=== PATIENT | female | born 2000 | race Two or more races ===

== ENCOUNTER 2024-02-09 06:14 | Inpatient (IN) | payer OTHER ==
[2024-02-09 06:37] VITALS: RESP 16
[2024-02-09] MEDS ORDERED: TRANEXAMIC 1,000 MG/100ML-NACL 1,000 MG in EMPTY BAG 1 BAG IV PRN (06:37)
[2024-02-09] MEDS ORDERED: TERBUTALINE 1 MG/ML VIAL SQ PRN (06:37)
[2024-02-09] MEDS ORDERED: OXYTOCIN 10 UNIT/ML 1 ML VIAL IM PRN (06:37)
[2024-02-09] MEDS ORDERED: miSOPROStoL 200 MCG TAB RECTAL PRN (06:37)
[2024-02-09] MEDS ORDERED: METHYLERGONOVINE 0.2 MG/ML 1 ML AMP IM PRN (06:37)
[2024-02-09] MEDS ORDERED: miSOPROStoL 200 MCG TAB PO PRN (06:37)
[2024-02-09] MEDS ORDERED: CARBOPROST TROMETHAMINE 250 MCG/ML 1 ML AMP IM PRN (06:37)
[2024-02-09] MEDS ORDERED: OXYTOCIN 30 UNITS/500 ML NS 30 UNIT in SALINE 1 500ML.BAG IV SCH (06:45)
[2024-02-09] MEDS: LACTATED RINGERS 1,000 ML IV SCH (06:46)
[2024-02-09] MEDS: NALBUPHINE 10 MG/ML (10 ML MDV) IV PRN (06:50)
[2024-02-09 06:54] LABS: Basophils % (A) 0 %; Eosinophils # (A) 0.1 k/uL (0-0.7); Eosinophils % (A) 1 %; HCT 35.8 % (34.0-46.0); HGB 12.2 gm/dL (11.4-16.0); Lymphocytes # (A) 1.7 k/uL (1.0-4.8); Lymphocytes % (A) 15 %; MCH 29.9 pg (25.0-35.0); MCHC 34.1 g/dL (31.0-37.0); MCV 87.8 fL (80.0-100.0); Mean Platelet Volume 9.5; Monocytes # (A) 0.5 k/uL (0-1.0); Monocytes % (A) 4 %; Neutrophils # (A) 9.2 k/uL (1.3-7.7); Neutrophils % (A) 79 %; Platelet Count 253 k/uL (150-450); RBC 4.08 m/uL (3.80-5.40); RDW 14.8 % (11.5-15.5); WBC 11.7 k/uL (3.8-10.6)
[2024-02-09] MEDS ORDERED: fentaNYL (PF) 50 MCG/ML 5 ML AMP ONE (07:34)
[2024-02-09] MEDS ORDERED: SODIUM CHLORIDE 0.9% 250 ML BAG ONE (07:34)
[2024-02-09] MEDS ORDERED: ROPIVACAINE 5 MG/ML 30 ML VIAL ONE (07:34)
--- NOTE | 2024-02-09 10:03 | P.HPOB ---
History of Present Illness H&P Date: 02/09/24 Chief Complaint: leaking of fluid, contractions Ms. Madden is a 23 year old at 39 weeks and 0 days with EDC of 02/16/2024 who receives care with Dr. Man at [facility] and presented with spontaneous rupture of membranes this morning at 149 with clear fluid and painful contractions. She was dilated to 5/80/-2 in triage per the OB RN. The patient states her has been uncomplicated, she has a normal 1 hour GTT, and her GBS was negative. Records will be requested from her office. Obstetric history: 1 FTVD IOL at 40 weeks for pre-eclampsia, male, 7#4oz. 2 SABs. Medical history: patient denies Medications: ferrous sulfate, PNVs, ASA SxHx: wisdom teeth extraction SocHx: Negative x3 Past Medical History Additional Past Medical History / Comment(s): Preeclampsia with first History of Any Multi-Drug Resistant Organisms: None Reported Past Surgical History: No Surgical Hx Reported Past Anesthesia/Blood Transfusion Reactions: No Reported Reaction Past Psychological History: No Psychological Hx Reported Smoking Status: Never smoker Past Drug Use History: None Reported Medications and Allergies Home Medications Medication Instructions Recorded Confirmed Type Aspirin 81 mg PO DAILY 02/09/24 02/09/24 History Ferrous Sulfate [Iron] 325 mg PO DAILY 02/09/24 02/09/24 History Vit No.179/Iron/Folic 1 tab PO DAILY 02/09/24 02/09/24 History [ Tablet] Allergies Allergy/AdvReac Type Severity Reaction Status Date / Time bee venom protein (honey bee) Allergy Unknown Verified 02/09/24 06:18 Exam Vital Signs Temp Pulse Resp BP Pulse Ox 02/09/24 06:37 96.7 F L 84 16 125/85 99 02/09/24 06:17 96.7 F L 84 16 125/85 99 Intake and Output 02/08/24 02/09/24 02/09/24 22:59 06:59 14:59 Other: Weight 87.997 kg Focused physical exam is performed. This is a healthy-appearing in no apparent distress. Breathing is non-labored. Abdomen is gravid and non-tender. Cervical exam is 5/80/-2 per OB RN. Gross rupture of membranes noted. Extremities non-tender and non-edematous. heart tones are Category I and tocometer is graphing contractions every 2-4 minutes. Results Result Diagrams: 02/09/24 06:40 Abnormal Lab Results - Last 24 Hours (Table) 02/09/24 Range/Units 06:40 WBC 11.7 H (3.8-10.6) k/uL Neutrophils # 9.2 H (1.3-7.7) k/uL Assessment and Plan Assessment: 23 year old at 39 weeks and 0 days with grossly ruptured membranes and in labor Plan: Admit, clear liquid diet, epidural prn, continuous EFM and tocometer, expectant management, anticipate vaginal delivery
--- NOTE | 2024-02-09 11:45 | P.MSEPDOC ---
Presenting Problems - Arrival Data Date of Arrival on Unit: 02/09/24 Time of Arrival on Unit: 06:40 Mode of Transport: Wheelchair - Complaint OB-Reason for Admission/Chief Complaint: Rule Out SROM Comment: [email or web address]@[id number] Medical History - Information : 2 Para: 1 Term: 1 : 0 Abortions: Spontaneous or Elective: 0 Number of Living Children: 1 - Gestational Age Gestational Age by LEANDRO (wks/days): 39 Weeks and 0 Days - History Comment: Pt has had care in [place] with Dr [email or web address] Review of Systems - Review of Systems Constitutional: No problems Breast: No problems ENT: No problems Cardiovascular: No problems Respiratory: No problems Gastrointestinal: No problems Genitourinary: No problems Musculoskeletal: No problems Neurological: No problems Skin: No problems Vital Signs - Temperature Temperature: 96.7 F Temperature Source: Axillary - Pulse Right Sitting Pulse Rate: 84 Pulse Assessment Method: Automatic Cuff - Respirations Respiratory Rate: 16 Oxygen Delivery Method: Room Air O2 Sat by Pulse Oximetry: 99 - Blood Pressure Right Arm Sitting Blood Pressure: 125/85 Blood Pressure Mean: 98 Blood Pressure Source: Automatic Cuff Medical Screen Scoring - Cervical Exam Dilation (cm): 5 Effacement (%): 80 Station: -2 Membranes: Ruptured - Uterine Contractions Intensity: Strong - Assessment - Baby A Baseline FHR: 145 Heart Rate - NICHD Category: Category I (Normal) NST: Reactive Physician Notification - Physician Notified Physician Notified Date: 02/09/24 Physician Notified Time: 06:25 Physician: Yarely Carlson Order Received: Yes Maternal Triage Index - Maternal Triage Index Presenting for scheduled procedure w/no complaint: No - Stat/Priority 1 Stat Priority 1: No - Urgent/Priority 2 Urgent Priority 2: No - Prompt/Priority 3 Prompt Priority 3: Yes Criteria Met for Priority 3: 39 0/7 [email or web address] @[id number] Disposition - Disposition OB Disposition: Admit, LDRP Suite I agree with the RN Medical Screening Exam: Yes Case reviewed; plan agreed upon as documented in EMR&OBIX.: Yes Diagnosis: RELATED CONDITIONS, UNSPECIFIED, THIRD TRIMESTER
[2024-02-09] MEDS: LIDOCAINE 0.5% (PF) 5 MG/ML (50 ML SDV) SQ PRN (12:37)
--- NOTE | 2024-02-09 13:00 | P.PROBDLV ---
Vaginal Delivery Note - . Vaginal Delivery Note: DATE OF SERVICE: 02/09/2024 PROCEDURE: Normal Vaginal Delivery ATTENDING: Dr. Yarely aCrlson MD ESTIMATED BLOOD LOSS: 200 mL FINDINGS: VFI, Apgars 9/9. Weight 7 pounds and 9 ounces PROCEDURE: Ms. Madden is a 23 year old at 39 weeks presenting to labor and delivery for SROM and labor. The has been uncomplicated. For further details, please review the admitting H&P. She received epidural anesthesia per her request. The patient was completely dilated at 1227. She pushed effectively over with category I heart tones. A viable female infant was delivered at 1233. The infant was placed on the maternal abdomen and bulb suctioned. The infant was noted to be spontaneously crying. Cord was clamped and cut after a 30-second delay. The was handed off to the pediatric team. Placenta was delivered whole with gentle cord traction at 1236. Oxytocin was started to facilitate uterine tone. Uterine fundus was found to be firm and below the umbilicus upon fundal massage. Thorough examination of the cervix, vagina, periurethral area, and perineum revealed bilateral superficial sulcal lacerations. These areas were infiltrated with lidocaine and repaired with 3-0 Vicryl in a running fashion. The patient is stable and allo wed to begin the bonding process.
[2024-02-09] MEDS ORDERED: diphenhydrAMINE 50 MG/ML 1 ML VIAL IVP PRN ×2 (13:07)
[2024-02-09] MEDS ORDERED: diphenhydrAMINE 50 MG CAP PO PRN (13:07)
[2024-02-09] MEDS ORDERED: diphenhydrAMINE 25 MG CAP PO PRN (13:07)
[2024-02-09] MEDS ORDERED: BENZOCAINE/MENTHOL SPRAY 1 GM/SPRAY AEROSOL TOPICAL PRN (13:07)
[2024-02-09] MEDS ORDERED: ZOLPIDEM 5 MG TAB PO PRN (13:07)
[2024-02-09] MEDS ORDERED: SIMETHICONE 80 MG CHEWABLE PO PRN (13:07)
[2024-02-09] MEDS ORDERED: LANOLIN CREAM 1 GM TUBE TOPICAL PRN (13:07)
[2024-02-09] MEDS ORDERED: HYDROCORTISONE 2.5% RECTAL CREAM 30 GM TUBE RECTAL PRN (13:07)
[2024-02-09] MEDS: IBUPROFEN 800 MG TAB PO SCH (13:32)
[2024-02-09] MEDS: SENNOSIDES-DOCUSATE SODIUM 1 EACH TAB PO SCH (20:48)
[2024-02-10 06:20] LABS: Basophils % (A) 0 %; Eosinophils % (A) 0 %; HCT 33.4 % (34.0-46.0); HGB 10.7 gm/dL (11.4-16.0); Hypochromasia Slight; Lymphocytes # (A) 1.7 k/uL (1.0-4.8); Lymphocytes % (A) 17 %; MCH 29.1 pg (25.0-35.0); MCHC 31.9 g/dL (31.0-37.0); MCV 91.2 fL (80.0-100.0); Mean Platelet Volume 9.7; Monocytes # (A) 0.4 k/uL (0-1.0); Monocytes % (A) 4 %; Neutrophils # (A) 8.1 k/uL (1.3-7.7); Neutrophils % (A) 77 %; Platelet Count 224 k/uL (150-450); RBC 3.66 m/uL (3.80-5.40); RDW 14.8 % (11.5-15.5); WBC 10.5 k/uL (3.8-10.6)
[2024-02-10 08:34] VITALS: BP 123/82; PULSE 60; TEMP 98
--- NOTE | 2024-02-10 08:58 | P.DS ---
Providers Date of admission: 02/09/24 06:30 Expected date of discharge: 02/10/24 Attending physician: Yarely Carlson MD Primary care physician: Stated None Hospital Course: Ms. Madden is a 23 year old now PPD#1 s/p without complications. The patient is doing well this morning and had no acute events overnight. She has no complaints this morning. She reports minimal lochia, passing flatus, voiding without difficulty, ambulating, and eating/drinking without nausea or vomiting. doing well at bedside, breast feeding is going well. She denies chest pain, shortness of breathing, fevers, or chills overnight. She denies pain or swelling in the legs. restrictions are reviewed with the patient including pelvic rest for 6 weeks. The patient is encouraged to call the office if she experiences any heavy bleeding, foul-smelling discharge, breast complaints, or any if she has any other concerns. She will follow up in the office with in 6 weeks for exam. She plans to use Motrin and Tylenol OTC as needed for pain. All questions are answered. Assessment: 23 year old now PPD#1 s/p without complications Patient Condition at Discharge: Good Plan - Discharge Summary New Discharge Prescriptions: No Action Ferrous Sulfate [Iron] 325 mg PO DAILY Aspirin 81 mg PO DAILY Vit No.179/Iron/Folic [ Tablet] 1 tab PO DAILY Discharge Medication List Aspirin 81 mg PO DAILY 02/09/24 [History] Ferrous Sulfate [Iron] 325 mg PO DAILY 02/09/24 [History] Vit No.179/Iron/Folic [ Tablet] 1 tab PO DAILY 02/09/24 [History] Follow up Appointment(s)/Referral(s): Yarely Carlson MD [STAFF PHYSICIAN] - 6 Weeks Activity/Diet/Wound Care/Special Instructions: Instructions 1. Do not begin any exercise program for 3 weeks. 2. Do not resume sexual relations for 6 weeks or longer if uncomfortable. 3. You may take tub baths or showers at any time. 4. You may use tampons if desired after 6 weeks. 5. Keep any areas repaired with stitches clean and dry. 6. If you are not nursing, wear a good fitting, supportive bra during the day and limit fluid intake for at least 1 week to prevent breast engorgement. 7. Call the office, , within the next week to make appointment for your 6 week checkup if it has not already been made. 8. Report any of the following occurrences to the doctor promptly: a. Heavy, excessive bleeding b. Chills, fever c. Burning or frequency of urination d. Pain or redness and breasts if nursing e. Increasing pain or swelling of vulva (stitches). In addition to the above instructions, the following additional should be followed: 1. No heavy lifting or straining (exercising) until after 6 week checkup. 2. Keep abdominal incision clean and dry: You may wear a dressing if more comfortable. 3. Make office appointment for 2 weeks after delivery date. Discharge Disposition: HOME SELF-CARE
== END 2024-02-10 13:30 | disposition home or self-care (01) | DRG 560 ==
LOC: FBPOP 06:14 → 4FBP 06:30
PROVIDERS: ADMIT Obstetrics & Gynecology; ATTEND Obstetrics & Gynecology
PROC: 10E0XZZ Delivery of Products of Conception, External Approach (ICD-10-PCS; principal; 2024-02-09)
PROC: 3E033VJ Introduction of Other Hormone into Peripheral Vein, Percutaneous Approach (ICD-10-PCS; 2024-02-09)
PROC: 4A1HXCZ Monitoring of Products of Conception, Cardiac Rate, External Approach (ICD-10-PCS; 2024-02-09)
DX: O71.4 Obstetric high vaginal laceration alone (principal); Z37.0 Single live birth; Z3A.39 39 weeks gestation of pregnancy; Z79.82 Long term (current) use of aspirin
CPT/HCPCS: 59025; 84112; 85025; 86850; 86900; 86901; 99213